=== PATIENT | male | born 1995 | race Caucasian/White ===

== ENCOUNTER 2019-11-04 21:51 | Emergency (ER) | payer BC, OTHER ==
[2019-11-04 22:07] VITALS: BP 154/103; PULSE 139
[2019-11-04] MEDS ORDERED: Famotidine 20 MG/2 ML SDV IVPUSH ONE (22:25)
[2019-11-04] MEDS ORDERED: Ondansetron 4 MG/2 ML SDV IVPUSH ONE (22:25)
[2019-11-04] MEDS ORDERED: Sodium Chloride 0.9% 10 ML Syringe FLUSH PRN (22:25)
--- NOTE | 2019-11-04 22:25 | EDM.PDOC ---
ED HPI GENERAL MEDICAL PROBLEM - General Chief Complaint: Abdominal Pain Stated Complaint: abdominal pain Time Seen by Provider: 11/04/19 22:15 Source of Information: Reports: Patient, Family, RN Notes Reviewed - History of Present Illness INITIAL COMMENTS - FREE TEXT/NARRATIVE: 24-year-old male comes in recurrent repetitive vomiting. Started with nausea and mild abdominal pain this past morning 10 to 12 hours ago. Started vomiting about 8 to 10 hours ago and has been repetitively vomiting all afternoon and early evening. There is been no diarrhea. Upper abdominal cramping. Bowie totally fine yesterday. No history of GI problems. No one else ill at home at this time. Right Abdomen Pain Score (Numeric/FACES): 6 - Related Data Allergies Allergy/AdvReac Type Severity Reaction Status Date / Time No Known Allergies Allergy Verified 10/24/15 14:34 Home Meds: Home Meds Multivitamins 1 cap PO DAILY 07/19/14 [History] Ondansetron [Zofran ODT] 4 mg PO Q6H PRN #7 tab.dis 11/05/19 [Rx] Past Medical History - Past Health History Medical/Surgical History: Denies Medical/Surgical History Social & Family History - Tobacco Use Smoking Status *Q: Current Every Day Smoker Years of Tobacco use: 2 Packs/Tins Daily: 0.3 - Caffeine Use Caffeine Use: Reports: Soda - Recreational Drug Use Recreational Drug Use: No - Living Situation & Occupation Living situation: Reports: Single Occupation: Student ED ROS GENERAL - Review of Systems Review Of Systems: See Below Constitutional: Denies: Fever, Chills, Diaphoresis HEENT: Reports: No Symptoms Respiratory: Denies: Shortness of Breath Cardiovascular: Denies: Chest Pain GI/Abdominal: Reports: Abdominal Pain, Nausea, Vomiting. Denies: Hematemesis Musculoskeletal: Reports: No Symptoms Neurological: Reports: Dizziness ED EXAM, GI/ABD - Physical Exam Exam: See Below General Appearance: Alert, Mild Distress, Active Emesis (Arrival to ED) Throat/Mouth: Normal Inspection Head: Atraumatic Neck: Supple Respiratory/Chest: No Respiratory Distress, Lungs Clear, Normal Breath Sounds Cardiovascular: Regular Rate, Rhythm GI/Abdominal Exam: Soft, Tender (Very mild tenderness upper abdomen and mid abdomen). No: Guarding, Rebound Extremities: Normal Inspection, Normal Range of Motion Neurological: Alert, Oriented, No Motor/Sensory Deficits Skin Exam: Warm, Dry, Normal Color Course - Vital Signs Last Recorded V/S: Last Vital Signs Temp 97.0 F 11/04/19 22:06 Pulse 139 H 11/04/19 22:06 Resp 20 11/04/19 22:06 BP 154/103 H 11/04/19 22:06 Pulse Ox 98 11/04/19 22:06 - Orders/Labs/Meds Orders: Active Orders 24 hr Category Date Time Status Peripheral IV Care [RC] . DIRECTED Care 11/04/19 22:25 Active Peripheral IV Insertion Adult [OM.PC] Stat Oth 11/04/19 22:24 Ordered Labs: Laboratory Tests 11/04/19 11/04/19 Range/Units 22:30 22:30 WBC 17.94 H (4.23-9.07) K/mm3 RBC 5.53 (4.63-6.08) M/mm3 Hgb 17.8 H (13.7-17.5) gm/dl Hct 50.0 (40.1-51.0) % MCV 90.4 (79.0-92.2) fl MCH 32.2 (25.7-32.2) pg MCHC 35.6 H (32.2-35.5) g/dl RDW Std Deviation 38.8 (35.1-43.9) fL Plt Count 356 H (163-337) K/mm3 MPV 8.8 L (9.4-12.3) fl Neut % (Auto) 87.1 H (34.0-67.9) % Lymph % (Auto) 4.7 L (21.8-53.1) % Green % (Auto) 7.6 (5.3-12.2) % Eos % (Auto) 0.2 L (0.8-7.0) Baso % (Auto) 0.1 (0.1-1.2) % Neut # (Auto) 15.62 H (1.78-5.38) K/mm3 Lymph # (Auto) 0.85 L (1.32-3.57) K/mm3 Green # (Auto) 1.37 H (0.30-0.82) K/mm3 Eos # (Auto) 0.04 (0.04-0.54) K/mm3 Baso # (Auto) 0.01 (0.01-0.08) K/mm3 Manual Slide Review Abnormal smear Sodium 137 (136-145) mEq/L Potassium 4.6 (3.5-5.1) mEq/L Chloride 94 L (98-107) mEq/L Carbon Dioxide 14 L (21-32) mEq/L Anion Gap 33.6 H (5-15) BUN 15 (7-18) mg/dL Creatinine 1.6 H (0.7-1.3) mg/dL Est Cr Clr Drug Dosing 73.71 mL/min Estimated GFR (MDRD) 54 (>60) mL/min BUN/Creatinine Ratio 9.4 L (14-18) Glucose 177 H (74-106) mg/dL Calcium 10.1 (8.5-10.1) mg/dL Total Bilirubin 1.3 H (0.2-1.0) mg/dL AST 43 H (15-37) U/L ALT 51 (16-63) U/L Alkaline Phosphatase 104 (46-116) U/L Total Protein 9.0 H (6.4-8.2) g/dl Albumin 5.1 H (3.4-5.0) g/dl Globulin 3.9 gm/dL Albumin/Globulin Ratio 1.3 (1-2) Meds: Medications Discontinued Medications Generic Name Dose Route Start Last Admin Trade Name Freq PRN Reason Stop Dose Admin Famotidine 20 mg 11/04/19 22:25 11/04/19 22:36 Pepcid IVPUSH 11/04/19 22:26 20 mg ONETIME ONE Administration Sodium Chloride 1,000 mls @ 999 mls/hr 11/04/19 22:30 11/04/19 22:35 Normal Saline IV 999 mls/hr ONETIME IDA Administration Lactated Ringer's 1,000 mls @ 999 mls/hr 11/04/19 23:10 11/04/19 23:31 Ringers, Lactated IV 11/05/19 00:10 999 mls/hr .BOLUS ONE Administration Ondansetron HCl 4 mg 11/04/19 22:25 11/04/19 22:35 Zofran IVPUSH 11/04/19 22:26 4 mg ONETIME ONE Administration Ondansetron HCl 4 mg 11/05/19 00:58 11/05/19 01:01 Zofran Odt PO 11/05/19 00:59 4 mg ONETIME ONE Administration Sodium Chloride 10 ml 11/04/19 22:25 11/04/19 22:36 Saline Flush FLUSH 10 ml ASDIRECTED PRN Administration Keep Vein Open - Re-Assessments/Exams Free Text/Narrative Re-Assessment/Exam: 11/05/19 00:53 Patient was quite dehydrated on arrival, quite tachycardic, to quite low at 14, anion gap quite elevated. Given initial liter of normal saline and follow that up with a liter of LR. Given Zofran and Pepcid IV. Been no further vomiting. Discharge instructions as documented. Departure - Departure Time of Disposition: 00:12 Disposition: Home, Self-Care 01 Condition: Fair Clinical Impression: Dehydration Vomiting Qualifiers: Vomiting type: bilious vomiting Nausea presence: with nausea Qualified Code(s) : R11.14 - Bilious vomiting Abdominal pain Qualifiers: Abdominal location: upper abdomen, unspecified Qualified Code(s): R10.10 - Upper abdominal pain, unspecified - Discharge Information Prescriptions: Ondansetron [Zofran ODT] 4 mg PO Q6H PRN #7 tab.dis PRN Reason: Nausea/Vomiting Instructions: Nausea and Vomiting, Adult Referrals: PCP,None [Primary Care Provider] - Forms: ED Department Discharge Additional Instructions: Rest. Vaporizer or steam as needed. Clear liquids until tomorrow afternoon, than very careful bland diet as tolerated. Zofran if needed for any further nausea or vomiting. Follow up clinic if not much better within 1 to 2 days as expected. Return to ED as needed. Sepsis Event Note - Evaluation Sepsis Screening Result: No Definite Risk - Focused Exam Vital Signs: Vital Signs Temp Pulse Resp BP Pulse Ox 11/04/19 22:06 97.0 F 139 H 20 154/103 H 98 Date Exam was Performed: 11/05/19 Time Exam was Performed: 03:47 - My Orders Last 24 Hours: My Active Orders 11/04/19 22:24 Peripheral IV Insertion Adult [OM.PC] Stat 11/04/19 22:25 Peripheral IV Care [RC] . DIRECTED - Assessment/Plan Last 24 Hours: My Active Orders 11/04/19 22:24 Peripheral IV Insertion Adult [OM.PC] Stat 11/04/19 22:25 Peripheral IV Care [RC] . DIRECTED
[2019-11-04] MEDS ORDERED: Sodium Chloride 0.9% 1,000 ML IV SCH (22:30)
[2019-11-04] MEDS ORDERED: Lactated Ringers 1,000 ML IV ONE (23:10)
[2019-11-05] MEDS ORDERED: Ondansetron 4 MG Tab.DIS PO ONE (00:58)
== END 2019-11-05 01:02 | disposition home or self-care (01) ==
LOC: JD.ED 21:51
DX: R10.10 Upper abdominal pain, unspecified (principal); R11.14 Bilious vomiting; E86.0 Dehydration; F17.210 Nicotine dependence, cigarettes, uncomplicated
CPT/HCPCS: 36415; 80053; 85025; 96361; 96374; 96375; 99284; A9270; J2405; J3490; J7030; J7120

== ENCOUNTER 2021-08-26 05:36 | Emergency (ER) | payer BC, OTHER ==
--- NOTE | 2021-08-26 06:08 | EDM.PDOC ---
ED HPI GENERAL MEDICAL PROBLEM - General Chief Complaint: Head Injury Stated Complaint: ZITA AMB Time Seen by Provider: 08/26/21 05:36 - History of Present Illness INITIAL COMMENTS - FREE TEXT/NARRATIVE: 25-year-old male brought in by EMS after having a ground-level fall at work. According to the patient he was frantically looking for stuff at work looking multiple directions [id number] he became lightheaded next thing he knew he was on the floor with his supervisors attending to him. Estimated he was out for about 45 seconds. According to bystanders he had some involuntary movements. Patient was awake after the 45 seconds. No loss of bowel or bladder control the patient has not had episodes like this in the past. He did sustain a laceration to the back of his scalp. The patient has not had episodes like this in the past. Patient is unsure when his last tetanus shot was. Posterior Head Pain Score (Numeric/FACES): 6 - Related Data Allergies Allergy/AdvReac Type Severity Reaction Status Date / Time bee venom protein (honey bee) Allergy Hives Verified 08/26/21 05:55 Home Meds: Home Meds Multivitamins 1 cap PO DAILY 07/19/14 [History] Ondansetron [Zofran ODT] 4 mg PO Q6H PRN #7 tab.dis 11/05/19 [Rx] Past Medical History - Past Health History Medical/Surgical History: Denies Medical/Surgical History Social & Family History - Caffeine Use Caffeine Use: Reports: Soda - Living Situation & Occupation Living situation: Reports: Single Occupation: Student ED ROS GENERAL - Review of Systems Review Of Systems: See Below Constitutional: Reports: No Symptoms HEENT: Reports: No Symptoms Respiratory: Reports: No Symptoms Cardiovascular: Reports: Syncope. Denies: Chest Pain, Edema Endocrine: Reports: No Symptoms GI/Abdominal: Reports: No Symptoms : Reports: No Symptoms Musculoskeletal: Reports: No Symptoms Skin: Reports: No Symptoms Neurological: Reports: Syncope ED EXAM, GENERAL - Physical Exam Exam: See Below Exam Limited By: No Limitations General Appearance: Alert, No Apparent Distress, Other (Patient is brought in he has a laceration over his occiput) Eye Exam: Bilateral Eye: EOMI, Normal Inspection, PERRL Ears: Normal External Exam, Normal Canal, Hearing Grossly Normal, Normal TMs Nose: Normal Inspection, Normal Mucosa, No Blood Throat/Mouth: Normal Inspection, Normal Lips, Normal Teeth, Normal Gums, Normal Oropharynx, Normal Voice, No Airway Compromise Head: Other (Laceration over his occiput) Neck: Normal Inspection, Supple, Non-Tender. No: Lymphadenopathy (L), Lymphadenopathy (R), Tender Midline Respiratory/Chest: No Respiratory Distress, Lungs Clear, Normal Breath Sounds Cardiovascular: Regular Rate, Rhythm, No Edema, No Murmur GI/Abdominal: Normal Bowel Sounds, Soft, Non-Tender, Pelvis Stable Extremities: Normal Range of Motion, Non-Tender ED GENERAL MEDICAL PROCEDURES - Laceration/Wound Repair Head Lac/wound length in cm: 5 Appearance: Other (Curvilinear laceration) Distal NVT: Neuro & Vascular Intact Anesthetic Type: Local Local Anesthesia - Lidocaine (Xylocaine): 1% Plain Local Anesthetic Volume: 4cc Skin Prep: Saline Exploration/Debridement/Repair: Explored to Base Closed with: Clarence # of Sutures: 8 Tetanus Status Addressed: Yes (Was updated) Complications: No #1 Interpretation EKG Date: 08/26/21 Rhythm: NSR [place]: Normal P-Wave: Present QRS: Other (Borderline early transition normal age-appropriate variant) QT: Normal Course - Vital Signs Last Recorded V/S: Last Vital Signs Temp 36.2 C 08/26/21 05:48 Pulse 111 H 08/26/21 05:48 Resp 20 08/26/21 05:48 BP 136/91 H 08/26/21 05:48 Pulse Ox 97 08/26/21 05:48 - Orders/Labs/Meds Orders: Active Orders 24 hr Category Date Time Status Vaccine to be Administered/Admin Charge [RC] ASDIRECTED Care 08/26/21 06:29 Ordered Head wo Cont [CT] Stat Exams 08/26/21 05:46 Ordered Labs: Laboratory Tests 08/26/21 08/26/21 Range/Units 05:14 05:14 WBC 4.26 (4.23-9.07) K/mm3 RBC 4.36 L (4.63-6.08) M/mm3 Hgb 15.1 D (13.7-17.5) gm/dl Hct 42.7 (40.1-51.0) % MCV 97.9 H D (79.0-92.2) fl MCH 34.6 H (25.7-32.2) pg MCHC 35.4 (32.2-35.5) g/dl RDW Std Deviation 41.3 (35.1-43.9) fL Plt Count 191 D (163-337) K/mm3 MPV 8.7 L (9.4-12.3) fl Neut % (Auto) 56.0 (34.0-67.9) % Lymph % (Auto) 32.2 (21.8-53.1) % [place] % (Auto) 10.6 (5.3-12.2) % Eos % (Auto) 0.5 L (0.8-7.0) Baso % (Auto) 0.5 (0.1-1.2) % Neut # (Auto) 2.39 (1.78-5.38) K/mm3 Lymph # (Auto) 1.37 (1.32-3.57) K/mm3 Carson # (Auto) 0.45 (0.30-0.82) K/mm3 Eos # (Auto) 0.02 L (0.04-0.54) K/mm3 Baso # (Auto) 0.02 (0.01-0.08) K/mm3 Sodium 136 (136-145) mEq/L Potassium 3.8 (3.5-5.1) mEq/L Chloride 98 (98-107) mEq/L Carbon Dioxide 23 (21-32) mEq/L Anion Gap 18.8 H (5-15) BUN 14 (7-18) mg/dL Creatinine 1.2 (0.7-1.3) mg/dL Est Cr Clr Drug Dosing 97.44 mL/min Estimated GFR (MDRD) > 60 (>60) mL/min BUN/Creatinine Ratio 11.7 L (14-18) Glucose 101 H (70-99) mg/dL Calcium 9.0 (8.5-10.1) mg/dL Total Bilirubin 0.9 (0.2-1.0) mg/dL AST 65 H (15-37) U/L ALT 66 H (16-63) U/L Alkaline Phosphatase 63 (46-116) U/L Total Protein 7.2 (6.4-8.2) g/dl Albumin 4.1 (3.4-5.0) g/dl Globulin 3.1 gm/dL Albumin/Globulin Ratio 1.3 (1-2) Meds: Medications Discontinued Medications Generic Name Dose Route Start Last Admin Trade Name Stone PRN Reason Stop Dose Admin Diphtheria/Tetanus/Acell Pertussis 0.5 ml 08/26/21 06:29 08/26/21 06:37 Diphtheria,Pertussis(Acell),Tetanus Vaccine 0.5 Ml Syringe IM 08/26/21 06:30 0.5 ml .ONCE ONE Administration Lidocaine HCl 10 ml 08/26/21 06:29 08/26/21 06:39 Lidocaine 1% 10 Ml Mdv INJECT 08/26/21 06:30 10 ml ONETIME ONE Administration - Re-Assessments/Exams Free Text/Narrative Re-Assessment/Exam: 08/26/21 07:11 Patient is having some jaw discomfort at the angle of the jaw this is probably due to clenching his teeth after the event palpation of the area is unrevealing. CT is read as normal Departure - Departure Time of Disposition: 07:19 Disposition: Home, Self-Care 01 Clinical Impression: Head injury, Occipital scalp laceration - Discharge Information Forms: ED Department Discharge, ED Return to Work/School Form Additional Instructions: Turn to the emergency room with any questions problems or worsening symptoms. Tylenol as needed for discomfort. Get plenty of sleep and rest you will need more rest than normal as you sustained a head injury. Follow-up with your Workmen's Comp. physician on Monday for recheck. Discuss any symptoms you are having with them. Staple removal in 10 to 12 days. Keep absolutely clean and dry for 48 hours after 48 hours you can let water gently run over the area but no scrubbing. Your tetanus was updated here. This should be updated every 10 years. Sepsis Event Note (ED) - Evaluation Sepsis Screening Result: No Definite Risk - Focused Exam Vital Signs: Vital Signs Temp Pulse Resp BP Pulse Ox 08/26/21 05:48 36.2 C 111 H 20 136/91 H 97 - My Orders Last 24 Hours: My Active Orders 08/26/21 05:46 Head wo Cont [CT] Stat 08/26/21 06:29 Vaccine to be Administered/Admin Charge [RC] ASDIRECTED - Assessment/Plan Last 24 Hours: My Active Orders 08/26/21 05:46 Head wo Cont [CT] Stat 08/26/21 06:29 Vaccine to be Administered/Admin Charge [RC] ASDIRECTED
[2021-08-26] MEDS ORDERED: Diphtheria,Pertussis(Acell),Tetanus Vaccine 0.5 ML Syringe IM ONE (06:29)
[2021-08-26] MEDS ORDERED: Lidocaine 1% 10 ML MDV INJECT ONE (06:29)
[2021-08-26 09:17] VITALS: BP 135/77; PULSE 100
--- NOTE | 2021-08-26 09:20 | CT ---
EXAM: CT HEAD W/O LOCATION: [facility] DATE/TIME: 08/26/2021 5:55 AM INDICATION: Syncope, fall, occipital laceration COMPARISON: None. TECHNIQUE: Routine CT Head without IV contrast. Multiplanar reformats. Dose reduction techniques were used. FINDINGS: INTRACRANIAL CONTENTS: No intracranial hemorrhage, extraaxial collection, or mass effect. No CT evidence of acute infarct. Normal parenchymal attenuation. Normal ventricles and sulci. VISUALIZED ORBITS/SINUSES/MASTOIDS: No intraorbital abnormality. No paranasal sinus mucosal disease. No middle ear or mastoid effusion. BONES/SOFT TISSUES: Soft tissue swelling and hematoma right parietal scalp. Underlying calvarium intact. IMPRESSION: 1. No acute intracranial abnormality. 2. No acute calvarial fracture. SIGNED BY: Vincent Webber MD 08/26/2021 7:43 AM [facility]
== END 2021-08-26 08:25 | disposition home or self-care (01) ==
LOC: JD.ED 05:36
DX: S01.01XA Laceration without foreign body of scalp, initial encounter (principal); Z91.030 Bee allergy status; Z23 Encounter for immunization; W18.39XA Other fall on same level, initial encounter; Y99.0 Civilian activity done for income or pay
CPT/HCPCS: 12002; 36415; 70450; 70450-26; 80053; 85025; 90471; 90715; 93005; 99285-25

== ENCOUNTER 2025-06-23 23:26 | Emergency (ER) | payer BC, OTHER ==
[2025-06-24] MEDS ORDERED: Sodium Chloride 0.9% 10 ML Syringe FLUSH PRN (00:04)
[2025-06-24 00:11] LABS: BASOPHILS ABSOLUTE AUTO 0.1 K/mm3 (0.0-0.2); BASOPHILS PERCENT AUTO 0.5 % (0.0-1.0); EOSINOPHILS ABSOLUTE AUTO 0.0 K/mm3 (0.0-0.4); EOSINOPHILS PERCENT AUTO 0.1 % (0.0-6.0); IMMATURE GRAN ABSOLUTE AUTO 0.05 K/mm3 (0.00-0.05); IMMATURE GRAN PERCENT AUTO 0.4 % (0.0-0.4); LYMPHOCYTES ABSOLUTE AUTO 0.4 K/mm3 (1.0-4.8); LYMPHOCYTES PERCENT AUTO 2.9 % (24.0-44.0); MEAN PLATELET VOLUME 8.5 fl (9.4-12.4); MONOCYTES ABSOLUTE AUTO 1.1 K/mm3 (0.0-0.8); MONOCYTES PERCENT AUTO 8.6 % (0.0-8.0); NEUTROPHILS ABSOLUTE AUTO 11.2 K/mm3 (1.8-7.7); NEUTROPHILS PERCENT AUTO 87.5 % (41.0-71.0); NRBC ABSOLUTE 0.00 (0.00-0.02); NRBC PERCENT 0.0 % (0.0-0.2); PLATELET COUNT,PLT 268 K/mm3 (150-400); RED BLOOD CELL COUNT 5.39 M/mm3 (4.52-5.90); WHITE BLOOD CELL COUNT,WBC 12.74 K/mm3 (3.9-11.3)
[2025-06-24] MEDS: Ondansetron 4 MG/2 ML SDV IVPUSH ONE ×2 (00:13→03:04)
[2025-06-24 00:20] LABS: INR 0.95
[2025-06-24 00:22] LABS: PTT,PARTIAL THROMBOPLSTIN TIME 24.9 SECONDS (21.7-31.4)
[2025-06-24] MEDS: Pantoprazole 40 MG in Sodium Chloride 0.9% 10 ML IVPUSH ONE (00:22)
[2025-06-24 00:27] LABS: LACTIC ACID 5.4 mmol/L (0.4-2.0)
[2025-06-24] MEDS: LORazepam 2 MG/ML SDV IVPUSH ONE ×4 (00:30→04:39)
[2025-06-24 00:31] LABS: A/G RATIO 1.2 (1-2); ALANINE AMINOTRANSFERASE,ALT 216.0 U/L (16-63); ASPARTATE AMNIOTRANSFERASE,AST 204.0 U/L (15-37); BILIRUBIN TOTAL 1.8 mg/dL (0.2-1.0); BLOOD UREA NITROGEN,BUN 15.0 mg/dL (7-18); CHLORIDE,CL 89.0 mEq/L (98-107); CREATININE 1.5 mg/dL (0.7-1.3); EST CRCL DRUG DOSING (CG) 64.07 mL/min; ESTIMATED GFR 65.0 mL/min (>60); GLUCOSE RANDOM 243.0 mg/dL (70-99); POTASSIUM,K 5.0 mEq/L (3.5-5.1); PROTEIN TOTAL,TP 9.1 g/dl (6.4-8.2); SODIUM,NA 132.0 mEq/L (136-145)
[2025-06-24 00:45] LABS: CARBON DIOXIDE,CO2 9.0 mEq/L (21-32)
[2025-06-24 00:46] LABS: ETHANOL BLOOD MEDICAL 0.0 gm% (0.00)
[2025-06-24 00:47] LABS: APPEARANCE,URINE CLEAR (Clear); GLUCOSE,URINE NEGATIVE (Negative); OCCULT BLOOD,URINE 1+ (Negative)
[2025-06-24 00:56] LABS: EPITHELIAL CELLS,URINE 0-5 /hpf (0-5)
[2025-06-24 00:58] LABS: BUPRENORPHINE SCREEN,URINE NEGATIVE (CUTOFF=10); METHADONE SCREEN, URINE NEGATIVE (CUT0FF=200); METHAMPHETAMINES SCREEN, URINE NEGATIVE (CUTOFF=500); OXYCODONE SCREEN,URINE NEGATIVE (CUT0FF=100); THC SCREEN,URINE 20 NG/ML NEGATIVE (CUTOFF=50)
[2025-06-24 01:19] LABS: AMPHETAMINES SCREEN, URINE NEGATIVE (CUTOFF=500)
[2025-06-24] MEDS: Iopamidol 612 MG/ML 100 ML Bottle IVPUSH ONE (02:31)
[2025-06-24 02:49] LABS: BLOOD UREA NITROGEN,BUN 15.0 mg/dL (7-18); CARBON DIOXIDE,CO2 13.0 mEq/L (21-32); CHLORIDE,CL 95.0 mEq/L (98-107); CREATININE 1.3 mg/dL (0.7-1.3); EST CRCL DRUG DOSING (CG) 73.92 mL/min; ESTIMATED GFR 77.0 mL/min (>60); GLUCOSE RANDOM 229.0 mg/dL (70-99); POTASSIUM,K 5.0 mEq/L (3.5-5.1); SODIUM,NA 130.0 mEq/L (136-145)
[2025-06-24] MEDS: Thiamine 200 MG/2 ML MDV IVPUSH ONE (04:38)
[2025-06-24 06:11] VITALS: BP 135/92; PULSE 135
== END 2025-06-24 05:00 ==
LOC: JD.ED 23:26
DX: F10.231 Alcohol dependence with withdrawal delirium (principal); E86.0 Dehydration; K92.2 Gastrointestinal hemorrhage, unspecified; Z91.030 Bee allergy status; Z86.16 Personal history of COVID-19; Y90.9 Presence of alcohol in blood, level not specified
CPT/HCPCS: 36415; 74177; 80048; 80053; 80306; 80307; 81001; 83605; 83690; 83735; 85025; 85610; 85730; 93005; 96361; 96374; 96375; 96376; 99285; A4216; J2060; J2405; J2470; J3411; J7030; Q9967; S5010